=== PATIENT | male | born 1950 | race Caucasian/White ===

== ENCOUNTER 2017-07-01 10:47 | Day surgery (SDC) | payer MEDICARE ==
--- NOTE | ~2017-07-01 | OP ---
PATIENT NAME: LIZZETTE CHAPA MEDICAL RECORD: [id number] :52 [facility] DATE: SURGEON: DEWAYNE OLIVER DO DATE OF OPERATION: 07/01/2017 PROCEDURE: EGD with biopsies and colonoscopy with biopsies. INDICATIONS FOR PROCEDURE: Include history of colon polyps, diverticular disease, abnormal findings on CT scan, nausea, heartburn, epigastric abdominal pain. SCOPES: Olympus video gastroscope and [employer] video pediatric colonoscope. MEDICATIONS: Propofol 1000 mg total IV per anesthesia. WITHDRAWAL TIME ON COLONOSCOPY: 13 minutes. ESTIMATED BLOOD LOSS: Minimal. COMPLICATIONS: None. FINDINGS: Informed consent was given. The patient was made comfortable with the above medication. After reaching an adequate level of sedation by slow IV push, the patient was placed on his left side. The upper endoscope was advanced through the mouth under direct visualization to the jejunum. The upper, middle, and lower thirds of the esophagus appeared normal. At the GE junction, there was some evidence of LA class A reflux-induced esophagitis. A cold forceps biopsy was taken just distal to the squamocolumnar junction to rule out any Dangelo esophagus. The endoscope was advanced beyond the GE junction into the stomach and retroflexed to view the cardia, which appeared normal. Throughout the entire stomach, there was some erythema and granularity consistent with possible gastritis. Biopsies were taken to submit for histopathology and to rule out H. pylori. There was evidence of prior intervention in the stomach with the closure of the stomach near the pylorus and a gastrojejunostomy originating in the greater curvature of the stomach body. The anastomosis appears healthy. The blind pouch had no abnormalities. The endoscope was advanced into the jejunum for approximately 20-30 cm without any abnormal findings. The endoscope was then withdrawn from the patient. The patient tolerated the procedure well and there were no complications. The patient was turned around and a digital rectal examination was performed without abnormalities. The colonoscope was then placed through the rectum and advanced to the terminal ileum. The scope was slowly withdrawn and mucosa was carefully examined. There were no polyps visualized on today's examination. There were a few small mouth diverticula located on the descending and sigmoid colon. There was a single ulcer located at 50 cm which was biopsied with cold forceps. Random cold forceps biopsies were taken to submit for histology. Retroflexion was performed in the rectum with visualization of grade II internal hemorrhoids without active bleeding. The endoscope was withdrawn from the patient. The patient tolerated the procedure well and there were no complications. IMPRESSION: 1. LA class A reflux-induced esophagitis. 2. Likely gastritis with biopsies pending. 3. History of Melissa-en-Y gastric bypass. 4. Colonic ulcer located at 50 cm, biopsies pending. OPERATIVE REPORT [id number] LIZZETTE CHAPA 5. Mild diverticulosis of left side of the colon. 6. Grade II internal hemorrhoids. PLAN AND RECOMMENDATIONS: 1. Discharge home when recovery parameters are met. 2. Follow up biopsy specimen results. 3. High fiber diet. 4. Continue current medications, including omeprazole 20 mg b.i.d. 5. Notify the GI clinic if symptoms return. At this time, the patient states that his symptoms have nearly resolved. 6. Based on the patient's abnormal CT findings, he has had a tissue prominence noted in the second portion of the duodenum in the past and has under CT guided biopsy, which revealed ectopic pancreas. He has also had past abscess in his abdomen requiring surgical intervention. It would be worth considering a repeat CT scan in 6 months to make sure there are no changes or evolving process. Again, this could be weighed against his symptoms, which are large resolved at this time. TRANSINT:[id number] Voice Confirmation ID: [id number] DOCUMENT ID: [id number] DEWAYNE OLIVER DO at 0852 CC: [id number] DICTATION DATE: 07/01/17 1409 [employer] OPERATOR: 07/01/17 1441 [facility] 07/01/17 [id number] [place] [address]
[2017-07-01 11:40] LABS: HEMATOCRIT 46.5 % (42.0-54.0); HEMOGLOBIN 15.2 g/dL (13.5-17.5); MCH 27.7 pg (26.0-34.0); MCHC 32.7 g/dL (31.0-37.0); MCV 84.7 fL (80.0-100.0); MEAN PLATELET VOLUME 9.9 fL (7.4-10.4); RBC 5.49 10x6/uL (4.20-6.10); WBC 8.4 10x3/uL (4.8-10.8)
[2017-07-01 11:56] LABS: ANION GAP 18.2 mmol/L (8-16); CALCIUM 10.1 mg/dL (8.5-10.1); CARBON DIOXIDE 21.2 mmol/L (21.0-32.0); CREATININE - SERUM 1.8 mg/dL (0.6-1.3); POTASSIUM - SERUM 4.4 mmol/L (3.5-5.1)
[2017-07-01] MEDS ORDERED: INVOKANA100 MG PO (12:13)
[2017-07-01] MEDS ORDERED: OMEPRAZOLE CAP 20M (12:13)
[2017-07-01] MEDS ORDERED: METOPROLOL TART50 MG PO (12:14)
[2017-07-01] MEDS ORDERED: LISINOPRIL2.5 MG PO (12:14)
[2017-07-01] MEDS ORDERED: GLIMEPIRIDE4 MG PO (12:14)
[2017-07-01] MEDS ORDERED: FENOFIBRATE160 MG PO (12:15)
[2017-07-01] MEDS ORDERED: CRESTOR20 MG PO (12:15)
[2017-07-01 12:22] VITALS: BP 141/78; BMI 20.2
== END 2017-07-01 15:13 | disposition home or self-care (01) ==
LOC: D.OPS 10:47
PROVIDERS: Anesthesiology
DX: Z86.010 Personal history of colon polyps (principal); K21.0 Gastro-esophageal reflux disease with esophagitis; R11.0 Nausea; R10.13 Epigastric pain; K63.3 Ulcer of intestine; Z01.812 Encounter for preprocedural laboratory examination; I10 Essential (primary) hypertension; E11.9 Type 2 diabetes mellitus without complications

== ENCOUNTER 2020-01-22 07:50 | Day surgery (SDC) | payer OTHER ==
[~2020-01-22] VITALS: Ht 167.6 cm; Wt 50.0 kg
[~2020-01-22 07:50] MED LIST: CRESTOR20 MG PO; FENOFIBRATE160 MG PO; GLIMEPIRIDE4 MG PO; INVOKANA100 MG PO; LISINOPRIL2.5 MG PO; METOPROLOL TART50 MG PO; OMEPRAZOLE CAP 20M
[2020-01-22 08:23] LABS: HEMATOCRIT 39.2 % (42.0-54.0); HEMOGLOBIN 12.4 g/dL (13.5-17.5); MCH 27.6 pg (26.0-34.0); MCHC 31.6 g/dL (31.0-37.0); MCV 87.1 fL (80.0-100.0); MEAN PLATELET VOLUME 9.6 fL (7.4-10.4); RBC 4.5 10x6/uL (4.20-6.10); RDW 15.5 % (11.5-14.5); WBC 5.9 10x3/uL (4.8-10.8)
[2020-01-22 08:30] LABS: ANION GAP 10.9 mmol/L (8-16); CALCIUM 9.4 mg/dL (8.5-10.1); CREATININE - SERUM 1.6 mg/dL (0.6-1.3); POTASSIUM - SERUM 3.9 mmol/L (3.5-5.1)
[2020-01-22] MEDS ORDERED: CARAFATE1 G PO (09:18)
[2020-01-22] MEDS ORDERED: LEXAPRO5 MG PO (09:19)
[2020-01-22] MEDS ORDERED: BENTYL10 MG PO (09:19)
[2020-01-22 09:21] VITALS: Ht 167.6 cm; Wt 50.0 kg
--- NOTE | 2020-01-23 17:57 | OP ---
PATIENT NAME: LIZZETTE CHAPA MEDICAL RECORD: [id number] :52 [facility] DATE: SURGEON: DEWAYNE OLIVER DO DATE OF OPERATION: 01/22/2020 PROCEDURE: EGD with biopsies. INDICATION FOR PROCEDURE: Heartburn, generalized abdominal pain, abnormal weight loss. SCOPE: Olympus video gastroscope. MEDICATIONS: Propofol 240 mg IV per anesthesia. ESTIMATED BLOOD LOSS: Minimal. COMPLICATIONS: None. FINDINGS: Informed consent was given. The patient was made comfortable with the above medication. After reaching an adequate level of sedation by slow IV push, the patient was placed on his left side. The endoscope was advanced under direct visualization through the mouth to the second portion of the duodenum and the jejunum through a gastrojejunal anastomosis. The esophagus appeared normal down to the GE junction. At the GE junction, there were minor changes consistent with LA class A reflux-induced esophagitis. The endoscope was advanced beyond the GE junction into the stomach and retroflexed to view the cardia and fundus, which appeared normal. The mucosa throughout the stomach appeared normal. There was a gastrojejunal anastomosis off the side of the body of the stomach. The site looked normal without ulcerations. The endoscope traversed this site and went down into the jejunum approximately 30-40 cm. Appearances were normal to that point. The endoscope was then withdrawn back into the stomach and advanced down to the antrum and pylorus, which appeared normal. The endoscope was advanced beyond the pylorus and the duodenum. The bulb of the duodenum as well as the second portion appeared normal. The endoscope could not be traversed past this site due to looping in the endoscope. The cold forceps biopsies were taken from the duodenum. The endoscope was withdrawn back into the stomach and cold forceps biopsies were taken from the antrum to submit for histopathology and to rule out the presence of H. pylori. The endoscope was withdrawn into the midesophagus and cold forceps biopsies were taken to rule out the presence of eosinophils. The endoscope was then withdrawn from the patient. The patient tolerated the procedure well and there were no complications. IMPRESSION: 1. LA class A reflux-induced esophagitis. 2. Evidence of a prior gastrojejunostomy, which was performed due to an intraabdominal abscess. This is not a true gastric bypass as the patient does have his entire stomach and a patent pylorus. PLAN AND RECOMMENDATIONS: 1. Discharge home when recovery parameters are met. 2. Follow up biopsy specimen results. 3. GERD diet and reflux precautions. 4. Eat small frequent meals. 5. We will arrange a gastric emptying scan to rule out gastroparesis. OPERATIVE REPORT [id number] LIZZETTE CHAPA 6. Continue Protonix and Carafate for symptoms. 7. Continue taking medication slightly later in the morning at approximately 10:00 a.m., which the patient is currently doing. He states since he has done this over the past few days his abdominal pain has improved. 8. Followup with Dr. Swift is scheduled and in the GI clinic as needed. NTS:[id number] Voice Confirmation ID: [id number] DOCUMENT ID: [id number] DEWAYNE OLIVER DO at 1757 CC: [id number] DICTATION DATE: 01/22/20 1158 PROOF INSPECTOR: 01/22/20 2254 [facility] 01/22/20 [address] [place] [address]
== END 2020-01-22 12:55 | disposition home or self-care (01) ==
LOC: D.OPS 07:50
PROVIDERS: Anesthesiology; ATTEND Internal Medicine Gastroenterology
DX: R12 Heartburn (principal); R10.84 Generalized abdominal pain; R63.4 Abnormal weight loss; K21.0 Gastro-esophageal reflux disease with esophagitis

== ENCOUNTER → 2020-02-01 07:02 | Outpatient (CLI) | payer OTHER ==
[2020-01-22 09:21] VITALS: BMI 17.8
--- NOTE | 2020-01-22 12:40 | NUR ---
PIV DC'D WITH TIP INTACT. PATIENT DRESSING IN PERSONAL CLOTHING. [id number] DISCHARGE INSTRUCTIONS REVIEWED WITH PATIENT, DISCHARGED HOME VIA WHEELCHAIR TO PRIVATE VEHICLE WITH SON
[~2020-02-01 07:02] MED LIST changes: +BENTYL10 MG PO; +CARAFATE1 G PO; +LEXAPRO5 MG PO
== END | disposition home or self-care (01) ==
LOC: D.NM 07:02
PROVIDERS: ATTEND Internal Medicine Gastroenterology
DX: R10.9 Unspecified abdominal pain (principal); R11.0 Nausea